=== PATIENT | female | born 1970 | race Asian ===

== ENCOUNTER 2017-08-27 09:26 | Emergency (ER) | payer OTHER ==
[2017-08-27 09:37] VITALS: BP 125/78
[2017-08-27] MEDS ORDERED: DEXAMETHASONE 10 MG/ML VIAL PO STA (10:54)
--- NOTE | 2017-08-27 10:58 | ED Physician Documentation ---
History of Present Illness - Stated complaint Stated Complaint: R ANKLE PX - Chief complaint Chief Complaint: Ext Problem - History obtained from History obtained from: Patient - History of Present Illness Timing: Yesterday - Additonal information Additional information: 46-year-old female with a history of chronic ankle pain and other joint pains has gone into work at a new job yesterday where she was on her feet for about 6 hours. She did not tolerate this at all and has had severe pain in both ankles and has had to get her came back out. She is to stop this new job. She has been into see her doctor about workup of these sore ankles and she has MRI of the ankles scheduled for the of this month. She has not been evaluated for rheumatoid arthritis. She does state that she has had a remote injury to her ankles and while she was in the she was able to ambulate with her boots on and when she is not wearing them she has some problem with pain in her ankles. Today the pain is much worse. Review of Systems Constitutional: denies: Fever, Chills Eyes: denies: Decreased vision Ears: denies: Ear pain Nose: denies: Rhinorrhea / runny nose, Congestion Throat: denies: Sore throat Cardiac: denies: Chest pain / pressure, Palpitations Respiratory: denies: Dyspnea, Cough GI: denies: Abdominal Pain, Nausea, Vomiting : denies: Dysuria, Frequency Skin: denies: Rash Musculoskeletal: reports: Extremity pain, Joint pain, Pain with weight bearing. 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 : Frequency HEENT: Chronic sinusitis, Chronic hearing loss Psych: Depression, Anxiety Musculoskeletal: Other Derm: None - Past Surgical History Past Surgical History: Yes Ortho: Other - Present Medications Home Medications: Ambulatory Orders Medication Instructions Recorded Confirmed Albuterol Oral Soln 08/27/17 Gabapentin 300 mg PO 08/27/17 Omeprazole 20 mg PO DAILY 08/27/17 08/27/17 Rizatriptan Benzoate [Rizatriptan] 10 mg PO DAILY 08/27/17 Topiramate 125 mg PO BID 08/27/17 Valacyclovir HCl [Valacyclovir] 1,000 BID 08/27/17 - Allergies Allergies/Adverse Reactions: Allergies Allergy/AdvReac Type Severity Reaction Status Date / Time NSAIDS (Non-Steroidal AdvReac Dizziness Verified 08/27/17 09:38 Anti-Inflamma - Social History Does the pt smoke?: No Smoking Status: Never smoker Does the pt drink ETOH?: Yes Does the pt have substance abuse?: No - Immunizations Immunizations are current?: Yes PD ED PE NORMAL - Vitals Vital signs reviewed: Yes (tachy ) - General General: Alert and oriented X 3, No acute distress, Well developed/nourished - HEENT HEENT: Atraumatic, PERRL, EOMI - Respiratory Respiratory: No respiratory distress - Derm Derm: Normal color, Warm and dry, No rash - Extremities Extremities: No deformity, Other (There is tenderness to palpation over the talo -fibular ligament bilaterally and with twisting the ankle inward. distal n/v is intact. ) - Neuro Neuro: No motor deficit, No sensory deficit Eye Opening: Spontaneous Motor: Obeys Commands Verbal: Oriented GCS Score: 15 - Psych Psych: Normal mood, Normal affect Results - Vitals Vitals: Vital Signs - 24 hr 08/27/17 09:30 Temperature 36.9 C Heart Rate 103 H Respiratory 20 Rate Blood Pressure 125/78 O2 Saturation 99 Oxygen O2 Source Room air PD MEDICAL DECISION MAKING - ED course Complexity details: reviewed results, re-evaluated patient, considered differential, d/w patient ED course: 46-year-old female with chronic ankle pain has worsening after being on her feet yesterday and she does have tenderness over the talofibular ligament bilaterally she does have some pain with rolling of the ankle and here today we are placing her into a ankle stirrup bilaterally and we are giving her some dexamethasone. I am concerned about the possibility of rheumatoid arthritis in this patient and she does have a primary care doctor that she will be following up with and she has MRI of the ankle scheduled in 9 days time.I recommended the patient request a evaluation for rheumatology. Departure - Departure Disposition: 01 Home, Self Care Clinical Impression: Arthritis Instructions: ED Arthritis Rheumatoid Follow-Up: ASHLEE CARSON [Primary Care Provider] -
== END 2017-08-27 11:27 | disposition home or self-care (01) ==
LOC: ED 09:26
DX: M19.072 Primary osteoarthritis, left ankle and foot (principal); M19.071 Primary osteoarthritis, right ankle and foot; J45.909 Unspecified asthma, uncomplicated; K21.9 Gastro-esophageal reflux disease without esophagitis
CPT/HCPCS: 99283

== ENCOUNTER 2017-09-05 09:47 | Outpatient (CLI) | payer OTHER ==
--- NOTE | 2017-09-05 17:05 | MRI Report ---
EXAM: RIGHT ANKLE/HINDFOOT MRI WITHOUT CONTRAST EXAM DATE: 09/05/2017 10:48 AM. CLINICAL HISTORY: Ingrown nail, pain in right ankle. COMPARISON: None. TECHNIQUE: Multiplanar, multisequence T1-weighted and fluid-sensitive sequences of the ankle/hindfoot without contrast. Other: None. FINDINGS: Bones and articular surfaces: No significant ankle joint effusion. No osteochondral lesions. No signi ficant articular cartilage defects are seen. No evidence of acute fracture. Trace amount of subcortic al marrow edema at the posterior superior margin of the calcaneus. Musculotendinous structures: Slight degree of thickening and increased intrasubstance signal involvin g the distal Achilles tendon above the calcaneal insertion. Adjacent peritendinous edema. Small volum e of fluid within the retrocalcaneal bursa. Plantar fascia appears intact. Remaining visualized anter ior, posterior, and posterolateral ankle tendons appear intact without evidence of significant tendin osis. There is a moderate volume of fluid associated with the flexor hallucis longus tendon in the ab sence of joint effusion. Ligaments: The anterior and posterior talofibular, calcaneofibular and deltoid ligaments appear gross ly intact. Normal signal within the tarsal sinus. IMPRESSION: 1. Cleve triad. Mild to moderate distal Achilles tendinitis and peritendinitis with adjacent retroc alcaneal bursitis and small amount of reactive marrow edema at the posterior superior calcaneus with minimal Cleve deformity. 2. Moderate flexor hallucis longus tenosynovitis. [facility] MUSCULOSKELETAL RADIOLOGY SECTION Referring Provider Line: [phone] SITE ID: [id number]
== END 2017-09-05 09:48 | disposition home or self-care (01) ==
LOC: DI 09:47
PROVIDERS: ATTEND Nurse Practitioner Family
DX: M76.61 Achilles tendinitis, right leg (principal); M77.51 Other enthesopathy of right foot and ankle; M65.871 Other synovitis and tenosynovitis, right ankle and foot

== ENCOUNTER 2017-09-28 12:25 | Outpatient (CLI) | payer OTHER ==
--- NOTE | 2017-09-28 18:47 | MRI Report ---
EXAM: MRI PELVIS WITHOUT CONTRAST EXAM DATE: 09/28/2017 01:33 PM. CLINICAL HISTORY: 4 years low back pain and bilateral sciatic pain. Right hip pain. COMPARISON: None. TECHNIQUE: Multiplanar, multisequence T1-weighted and fluid-sensitive sequences of the pelvis without contrast. Other: None. FINDINGS: Bones: No fractures or subluxations. No marrow edema or bone lesions. Lower Lumbar Spine: Unremarkable. Sacroiliac Joints: No effusion or sacroiliitis. Right Hip: No acetabular retroversion. Femoral head-neck offset is within normal limits. No effusion. Left Hip: No acetabular retroversion. Femoral head-neck offset is within normal limits. No effusion. Symphysis Pubis: Unremarkable. Musculature: No edema or fatty atrophy. Pelvic Cavity: The visualized bowel, bladder, and reproductive organs are unremarkable. No lymphadeno nancy. No free fluid in the pelvis. Small right ovarian follicle within normal size limits. Mild left-sided pelvic venous varices. Nerves: The lumbar and sacral plexus nerves demonstrate normal morphology and signal bilaterally. Vis ualized sciatic and pelvic nerves also demonstrate normal appearance. No T2 signal abnormality, infla mmation or mass is seen. IMPRESSION: 1. Normal-appearing lumbar and sacral plexus and sciatic nerves. 2. Bony pelvis and sacrum demonstrate normal appearance. No marrow edema or suspicious bony lesion or fracture. 3. No mass, fluid or inflammation is seen in the pelvis. [facility] MUSCULOSKELETAL RADIOLOGY SECTION Referring Provider Line: [phone] SITE ID: [id number]
== END 2017-09-28 12:26 | disposition home or self-care (01) ==
LOC: DI 12:25
PROVIDERS: ATTEND Nurse Practitioner Family
DX: M54.32 Sciatica, left side (principal); M54.31 Sciatica, right side
CPT/HCPCS: 72195

== ENCOUNTER 2017-09-28 12:31 | Outpatient (CLI) | payer OTHER | END 2017-09-28 12:32 | disposition home or self-care (01) | LOC: DI 12:31 | PROVIDERS: ATTEND Nurse Practitioner Family | DX: Z53.9 Procedure and treatment not carried out, unspecified reason (principal) ==

== ENCOUNTER 2017-09-30 08:51 | Outpatient (CLI) | payer OTHER ==
--- NOTE | 2017-09-30 11:00 | MRI Report ---
EXAM: MRI LUMBAR SPINE WITHOUT CONTRAST EXAM DATE: 09/30/2017 08:49 AM. CLINICAL HISTORY: 46-year-old with severe sciatica COMPARISON: MR pelvis 09/28/2017. TECHNIQUE: Multiplanar, multisequence T1-weighted and fluid-sensitive sequences of the lumbar spine f rom T12 to S1 without contrast. Other: None. FINDINGS: Spinal Cord: The conus terminates at L1-L2. The conus medullaris and cauda equina are unremarkable. Alignment: No scoliosis or spondylolisthesis. Bone Marrow: Five [id number] lumbar vertebral bodies are assumed. No gross fractures or bone les ions. No bone marrow edema. Disk Levels/Facets: T12-L1: Unremarkable. L1-L2: Unremarkable. L2-L3: Unremarkable. L3-L4: Slight loss of disk height. No disk desiccation. Small posterior disk bulge. Minimal spinal ca nal stenosis. Mild bilateral neural foraminal narrowing. L4-L5: Mild loss of disk height and slight disk desiccation. Small posterior disk bulge and bilateral facet disease. Mild spinal canal stenosis. Mild to moderate bilateral neural frontal narrowing. L5-S1: Mild loss of disk height and disk desiccation. Small central to left paracentral disk protrusi on. Mild spinal canal stenosis with effacement left lateral recess with mass effect on the traversing left S1 nerve root. No neural foraminal narrowing. Musculature: Normal. No edema or fatty atrophy. Other: The partially visualized retroperitoneum is unremarkable. IMPRESSION: 1. At L5-S1 there is a small central to left paracentral disk protrusion. There is mild spinal canal stenosis and effacement of the left lateral recess with mass effect on the traversing left S1 nerve r oot. No neural foraminal narrowing. 2. L4-L5 there is mild spinal canal stenosis. There appears to be mild to moderate bilateral neural f oraminal narrowing. 3. At L3-L4 there is minimal spinal canal stenosis. There appears to be mild bilateral neural foramin al narrowing. Comment: The following findings are so common in adults without low back pain that while we report th eir presence, they must be interpreted with caution and in the context of the clinical situation. (Re jackeline Hathaway et al, Spine 2001) Prevalence of findings in patients without low back pain: Disk degeneration (any evidence): 92% Disk desiccation/T2 signal loss: 83% Disk height loss: 56% Disk bulge: 64% Disk protrusion: 32% Annular tear/high intensity zone: 38% [facility] Referring Provider Line: [phone] SITE ID: [id number]
== END 2017-09-30 08:52 | disposition home or self-care (01) ==
LOC: DI 08:51
PROVIDERS: ATTEND Nurse Practitioner Family
DX: M51.27 Other intervertebral disc displacement, lumbosacral region (principal); M51.36 Other intervertebral disc degeneration, lumbar region; M47.896 Other spondylosis, lumbar region; M51.37 Other intervertebral disc degeneration, lumbosacral region
CPT/HCPCS: 72148

== ENCOUNTER 2021-12-02 15:23 | Outpatient (CLI) | payer OTHER ==
--- NOTE | 2021-12-03 13:44 | Mammography Report ---
BILATERAL DIGITAL SCREENING MAMMOGRAM 3D/2D: 12/02/2021 CLINICAL: Baseline exam Routine screening. No prior exams were available for comparison. The tissue of both breasts is heterogeneously dense. T his may lower the sensitivity of mammography. No significant masses, calcifications, or other findings are seen in either breast. IMPRESSION: NEGATIVE There is no mammographic evidence of malignancy. A 1 year screening mammogram is recommended. This exam was interpreted at Station ID: [id number]. NOTE: For mammograms, a report in lay terms will be sent to the patient. Approximately 15% of breast malignancies will not be visualized mammographically. In the management of a palpable breast mass, a negative mammogram must not discourage biopsy of a clinically suspicious lesion. Electronically Signed By: Sandeep Jimenez M.D. [facility] [place]:12/02/2021 16:42:45 ACR BI-RADS Category 1: Negative [id number] PARENCHYMAL PATTERN: (D) - The breast(s) demonstrate(s) heterogeneously dense fibroglandular abdullahi klein. BI-RADS CATEGORY: (1) - 1 RECOMMENDATION: (ANNUAL) - Recommend routine annual screening mammography. [id number] 1 year screening LATERALITY: (B)
== END 2021-12-02 15:24 | disposition home or self-care (01) ==
LOC: DI.N 15:23
PROVIDERS: ATTEND Nurse Practitioner Gerontology
DX: Z12.31 Encounter for screening mammogram for malignant neoplasm of breast (principal)

== ENCOUNTER 2023-05-04 08:11 | Emergency (ER) | payer OTHER ==
--- NOTE | 2023-05-04 08:37 | ED Physician Documentation ---
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 She is not reporting significant wheezing. She does feel that the students smoking on campus are causing some problem with her shortness of breath. This morning she had a syncopal episode and she has come to the emergency department. She denies any recent period of confinement did have a 3-hour car trip last week. She uses a cane periodically for pain in her ankle which is chronic. She has pulled her cane out as she is having some difficulty with having to stop for breath. Review of Systems Constitutional: denies: Fever, Chills, Myalgias Eyes: denies: Decreased vision Ears: reports: Loss of hearing, Ear pain (right for past month with muffled hearing.) Nose: denies: Rhinorrhea / runny nose, Congestion Throat: denies: Sore throat Cardiac: denies: Chest pain / pressure, Palpitations Respiratory: reports: Dyspnea, Cough, Wheezing GI: denies: Abdominal Pain, Nausea, Vomiting, Constipation, Diarrhea : denies: Dysuria, Frequency Skin: denies: Rash Musculoskeletal: denies: Neck pain, Back pain, Extremity pain Neurologic: reports: Syncope, Headache. 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 HEENT: Chronic sinusitis, Chronic hearing loss Psych: Depression, Anxiety Musculoskeletal: Other Derm: None - Past Surgical History Past Surgical History: Yes Ortho: Other - Present Medications Home Medications: Ambulatory Orders Medication Instructions Recorded Confirmed Albuterol Oral Soln [Ventolin] 1 - 2 puffs INH Q4HR PRN 08/27/17 05/04/23 Gabapentin 300 mg PO HS 08/27/17 05/04/23 Omeprazole 20 mg PO DAILY 08/27/17 05/04/23 Valacyclovir HCl [Valacyclovir] 1,000 mg PO BID PRN 08/27/17 05/04/23 Erenumab-Aooe [Aimovig 70 mg SQ .MONTHLY 05/04/23 05/04/23 Autoinjector] Rivaroxaban [Xarelto] 15 mg PO BID #42 tablet 05/04/23 Ubrogepant [Ubrelvy] 50 mg PO ONCE PRN 05/04/23 05/04/23 - Allergies Allergies/Adverse Reactions: Allergies Allergy/AdvReac Type Severity Reaction Status Date / Time NSAIDS (Non-Steroidal AdvReac Dizziness Verified 05/04/23 08:28 Anti-Inflamma - Social History Does the pt smoke?: No Smoking Status: Never smoker Does the pt drink ETOH?: Yes Does the pt have substance abuse?: No - Immunizations Immunizations are current?: Yes - POLST Patient has POLST: No PD ED PE NORMAL - Vitals Vital signs reviewed: Yes (tachy and hypertensive ) - General General: Alert and oriented X 3, No acute distress, Well developed/nourished - HEENT HEENT: Atraumatic, PERRL, EOMI, Pharynx benign, Other (The right TM is yellow without landmarks with a background erythema consistent with chronic infection. The left TM has erythema to the attic and distortion of landmarks.) - Neck Neck: Supple, no meningeal sign, No bony TTP - Cardiac Cardiac: No murmur, Other (Tachycardic to 110) - Respiratory Respiratory: No respiratory distress, Clear bilaterally - Abdomen Abdomen: Normal bowel sounds, Soft, Non tender, Non distended, No organomegaly - Back Back: No CVA TTP, No spinal TTP - Derm Derm: Normal color, Warm and dry, No rash - Extremities Extremities: No deformity - Neuro Neuro: Alert and oriented X 3, head of research & insights 2-12 intact, No motor deficit, No sensory deficit, Normal speech Eye Opening: Spontaneous Motor: Obeys Commands Verbal: Oriented GCS Score: 15 - Psych Psych: Normal mood, Normal affect Results - Vitals Vitals: Vital Signs - 24 hr 05/04/23 05/04/23 05/04/23 08:24 08:58 09:28 Temperature 36.8 C Heart Rate 108 H 108 H 106 H Respiratory 20 18 15 Rate Blood Pressure 145/87 H 139/103 H 130/86 H O2 Saturation 96 95 93 05/04/23 05/04/23 05/04/23 09:58 10:30 11:00 Temperature Heart Rate 104 H 108 H 109 H Respiratory 15 20 22 Rate Blood Pressure 127/83 H 151/104 H 168/95 H O2 Saturation 93 94 94 05/04/23 05/04/23 11:30 12:00 Temperature Heart Rate 106 H 102 H Respiratory 21 21 Rate Blood Pressure 156/65 H 168/143 H O2 Saturation 93 93 Oxygen O2 Source Room air - EKG (time done) 0827 EKG releavant findings:: EKG personally interpreted by author of this note. Relevant findings are: Rate: Rate (enter#) (106) Rhythm: Sinus tachycardia, LAE Ischemia: Q waves, T wave inversion (general and consistent with ischemia) Compare to prior EKG: Old EKG unavailable Computer interpretation: Agree with computer - Labs Labs: Laboratory Tests 05/04/23 05/04/23 05/04/23 08:22 08:37 08:37 WBC 8.6 RBC 4.71 Hgb 14.7 Hct 44.6 MCV 94.7 MCH 31.2 H MCHC 33.0 RDW 13.6 Plt Count 302 MPV 9.4 Neut # (Auto) 7.0 H Lymph # (Auto) 1.2 L [place] # (Auto) 0.4 Eos # (Auto) 0.0 Baso # (Auto) 0.0 Absolute Nucleated RBC 0.00 Nucleated RBC % 0.0 D-Dimer Sodium 138 Potassium 4.0 Chloride 108 Carbon Dioxide 23 Anion Gap 7.0 BUN 14 Creatinine 0.9 Estimated GFR (MDRD) 66 L Glucose 114 H POC Whole Bld Glucose 125 H Calcium 9.1 Total Bilirubin 0.9 AST 31 ALT 53 Alkaline Phosphatase 73 Troponin I High Sens 34.4 H* B-Natriuretic Peptide Total Protein 6.0 L Albumin 4.0 Globulin 2.0 L Albumin/Globulin Ratio 2.0 Lipase 13 Nasal Adenovirus (PCR) Nasal B. parapertussis DNA (PCR) Nasal Coronavir 229E PCR Nasal Coronavir HKU1 PCR Nasal Coronavir NL63 PCR Nasal Coronavir OC43 PCR Nasal Enterovir/Rhinovir PCR Nasal Influenza B PCR Nasal Influenza A PCR Nasal Parainfluen 1 PCR Nasal Parainfluen 2 PCR Nasal Parainfluen 3 PCR Nasal Parainfluen 4 PCR Nasal RSV (PCR) Nasal B.pertussis DNA PCR Nasal C.pneumoniae (PCR) Billy Human Metapneumo PCR Nasal M.pneumoniae (PCR) Nasal SARS-CoV-2 (PCR) 05/04/23 05/04/23 05/04/23 08:37 08:37 09:23 WBC RBC Hgb Hct MCV MCH MCHC RDW Plt Count MPV Neut # (Auto) Lymph # (Auto) [place] # (Auto) Eos # (Auto) Baso # (Auto) Absolute Nucleated RBC Nucleated RBC % D-Dimer 557.3 H Sodium Potassium Chloride Carbon Dioxide Anion Gap BUN Creatinine Estimated GFR (MDRD) Glucose POC Whole Bld Glucose Calcium Total Bilirubin AST ALT Alkaline Phosphatase Troponin I High Sens B-Natriuretic Peptide 766 H Total Protein Albumin Globulin Albumin/Globulin Ratio Lipase Nasal Adenovirus (PCR) NOT DETECTED Nasal B. parapertussis DNA (PCR) NOT DETECTED Nasal Coronavir 229E PCR NOT DETECTED Nasal Coronavir HKU1 PCR NOT DETECTED Nasal Coronavir NL63 PCR NOT DETECTED Nasal Coronavir OC43 PCR NOT DETECTED Nasal Enterovir/Rhinovir PCR NOT DETECTED Nasal Influenza B PCR NOT DETECTED Nasal Influenza A PCR NOT DETECTED Nasal Parainfluen 1 PCR NOT DETECTED Nasal Parainfluen 2 PCR NOT DETECTED Nasal Parainfluen 3 PCR NOT DETECTED Nasal Parainfluen 4 PCR NOT DETECTED Nasal RSV (PCR) NOT DETECTED Nasal B.pertussis DNA PCR NOT DETECTED Nasal C.pneumoniae (PCR) NOT DETECTED Billy Human Metapneumo PCR NOT DETECTED Nasal M.pneumoniae (PCR) NOT DETECTED Nasal SARS-CoV-2 (PCR) NOT DETECTED Procedures - IVC sono (time) 0850 Bedside IVC sono: IVC measures (cm) (2.35), High CVP PD Medical Decision Making - ED course Complexity details: reviewed results, re-evaluated patient, considered differential, d/w patient ED course: 52-year-old female with a history of asthma presents to the emergency department after a syncopal episode with increased asthma symptoms over the past 5 days. On my examination I find a patient with clear lungs and oxygen saturation of 94 to 96% she is tachycardic to 110 and she is not volume depleted. She presents with increasing exertional dyspnea and she does have on physical exam signs of chronic otitis bilaterally. This can be a trigger for increased asthma but I found little evidence of asthma at the time of examination and a persistent tachycardia without volume depletion. My concern was for the possibility of pulmonary embolism and we obtained a CT angiogram of the chest.This angiogram was positive for clot burden of a moderate nature with some reflux of contrast into the inferior vena cava the clot is segmental and subsegmental there is no saddle embolus.The patient has a desire to go home and her oxygen saturation is 94% at room air with a heart rate of 107. We road tested the patient in the emergency department. Her heart rate did go up to 120 her oxygen stayed above 90%. I have asked the patient to discontinue work for at least 2 [address] will place her on a course of Eliquis with a follow-up with her primary. She will be treated for pulmonary embolism as an outpatient. Departure - Departure Disposition: Home, Self Care Clinical Impression: Pulmonary emboli Qualifiers: Pulmonary embolism type: other Chronicity: acute Acute cor pulmonale presence: with acute cor pulmonale Qualified Code(s): I26.09 - Other pulmonary embolism with acute cor pulmonale Condition: Stable Instructions: Embolism Pulmonary Follow-Up: [facility] [Provider Group] Prescriptions: Rivaroxaban [Xarelto] 15 mg PO BID #42 tablet Comments: Sherie, today it looks like you have a pulmonary embolism. There is blood clot in your lung and we are placing you on an anticoagulant. [place] This medication you will need to take twice per day for 3 weeks and following that you will take a different dose once a day for 3 to 6 months. Follow-up with your primary in the coming week. I have given you a note for work for 2 weeks. Reduce your overall activity. Forms: Activity restrictions
[2023-05-04 08:43] LABS: BASOPHILS % (AUTO) 0.3 %; EOSINOPHILS % (AUTO) 0.2 %; HCT - HEMATOCRIT 44.6 % (37.0-47.0); HGB - HEMOGLOBIN 14.7 g/dL (12.0-16.0); LYMPHOCYTES # (AUTO) 1.2 10^3/uL (1.5-3.5); LYMPHOCYTES % (AUTO) 13.5 %; MEAN CORPUSCULAR HEMOGLOBIN 31.2 pg (27.0-31.0); MEAN CORPUSCULAR VOLUME 94.7 fL (81.0-99.0); MEAN PLATELET VOLUME 9.4 fL (7.9-10.8); MONOCYTES # (AUTO) 0.4 10^3/uL (0.0-1.0); MONOCYTES % (AUTO) 4.2 %; NEUTROPHILS % (AUTO) 81.6 %; PLT - PLATELET COUNT 302 10^3/uL (130-450); RED BLOOD COUNT 4.71 10^6/uL (4.20-5.40); RED CELL DISTRIBUTION WIDTH 13.6 % (12.0-15.0); WHITE BLOOD COUNT 8.6 x10^3/uL (4.8-10.8)
[2023-05-04 09:01] LABS: BILIRUBIN,TOTAL 0.9 mg/dL (0.2-1.0); CALCIUM 9.1 mg/dL (8.5-10.3); CREATININE 0.9 mg/dL (0.6-1.3)
[2023-05-04 09:39] LABS: TROPONIN I HIGH SENSITIVITY 34.4 ng/L (2.3-14.8)
[2023-05-04 10:30] LABS: CORONAVIRUS 229E-RESP PCR NOT DETECTED; CORONAVIRUS HKU1-RESP PCR NOT DETECTED; CORONAVIRUS NL63-RESP PCR NOT DETECTED; CORONAVIRUS OC43-RESP PCR NOT DETECTED; HUMAN METAPNEUMOVIRUS NOT DETECTED; SARS-CoV-2 -RESP PCR PANEL NOT DETECTED
[2023-05-04 10:31] LABS: B. PARAPERTUSSIS- RESP PCR PAN NOT DETECTED; B. PERTUSSIS- RESP PCR PANEL NOT DETECTED; C. PNEUMONIAE- RESP PCR PANEL NOT DETECTED; INFLUENZA A- RESP PCR PANEL NOT DETECTED; INFLUENZA B - RESP PCR PANEL NOT DETECTED; M. PNEUMONIAE- RESP PCR PANEL NOT DETECTED; PARAINFLUENZA VIRUS 1 NOT DETECTED; PARAINFLUENZA VIRUS 2 NOT DETECTED; PARAINFLUENZA VIRUS 3 NOT DETECTED; PARAINFLUENZA VIRUS 4 NOT DETECTED; RHINOVIRUS/ENTEROVIRUS NOT DETECTED; RSV- RESP PCR PANEL NOT DETECTED
[2023-05-04] MEDS ORDERED: ENOXAPARIN 100 MG/ML SYRINGE SUBQ STA (10:56)
--- NOTE | 2023-05-04 11:19 | CT Report ---
PROCEDURE: ANGIO CHEST W/WO INDICATIONS: syncope, tachy clear lungs, hypoxia CONTRAST: Omni 300 80ml TECHNIQUE: After the administration of intravenous contrast, 2 mm axial images were acquired from the pulmonary apices to the posterior costophrenic angles during the arterial phase. In addition, 1 mm lung kernel and 5 mm soft tissue kernel reconstructions were performed. 3-dimensional coronal oblique maximum int ensity projection (MIP) reformats, 8 mm axial MIP, and 5 mm coronal and sagittal MPR reformats were t hen performed through the thorax. For radiation dose reduction, the following was used: automated exp osure control, adjustment of mA and/or kV according to patient size. COMPARISON: None FINDINGS: Image quality: Excellent. Large vessels: Moderate burden of lobar, segmental and subsegmental pulmonary embolic, burden right g reater than left. Lungs and pleura: No consolidation. No pleural effusions. No pneumothorax. No suspicious pulmonary n odules which require follow up. Focus of groundglass in the anterior left upper lobe. Mediastinum: Heart size is normal. There is enlargement of the right ventricle relative to the left. No pericardial effusion. No large vessel abnormality. No mediastinal adenopathy by size criteria. Chest wall and lower neck: Thyroid is unremarkable. No axillary or supraclavicular adenopathy by size . Bones: No aggressive osseous abnormality. Upper Abdomen: Reflux of contrast into the IVC. IMPRESSION: Moderate burden of lobar, segmental and subsegmental pulmonary emboli. Possible heart strain, with a dilated right atrium and reflux of contrast into the IVC. No definite infarct. Findings were discussed with provider at time of dictation. Reviewed by: Daniel Chen on 05/04/2023 11:18 AM [facility] Approved by: Daniel Chen on 05/04/2023 11:18 AM PST Station ID: [id number]
[2023-05-04 11:43] VITALS: O2SAT 93
[2023-05-04 12:53] VITALS: BP 106/61
[2023-05-04] MEDS ORDERED: iohexoL-300 100 ML VIAL IVP ONE (15:07)
== END 2023-05-04 12:54 | disposition home or self-care (01) ==
LOC: ED 08:11
DX: I26.09 Other pulmonary embolism with acute cor pulmonale (principal); Z20.822 Contact with and (suspected) exposure to COVID-19
CPT/HCPCS: 36415; 71275; 80053; 83690; 83880; 84484; 85025; 85379; 87633; 93005; 96372; 99284; J1650; Q9967

== ENCOUNTER 2024-02-24 17:09 | Outpatient (CLI) | payer OTHER | END 2024-02-24 17:10 | disposition short-term general hospital (02) | LOC: EMS 17:09 | DX: R07.89 Other chest pain (principal); R07.1 Chest pain on breathing | CPT/HCPCS: A0425; A0427 ==